=== PATIENT | female | born 1985 | race Caucasian/White ===

== ENCOUNTER 2017-05-04 05:41 | Inpatient (IN) | payer BC ==
[2017-05-04] MEDS ORDERED: DEXTROSE 5%-LACTATED RINGERS 1,000 ML IV PRN (06:48)
[2017-05-04] MEDS ORDERED: OXYTOCIN/DEXTROSE 5%-WATER 30 UNITS/500 ML BAG IV ONE ×2 (06:48→15:45)
[2017-05-04] MEDS ORDERED: RINGER'S SOLUTION,LACTATED 1,000 ML IV ONE (06:48)
[2017-05-04] MEDS ORDERED: RINGER'S SOLUTION,LACTATED 1,000 ML IV PRN (06:48)
[2017-05-04] MEDS ORDERED: ONDANSETRON HCL/PF 2 MG/ML VIAL IV PRN ×2 (06:48→10:52)
[2017-05-04] MEDS ORDERED: PENICILLIN G POTASSIUM 5 MILLIONUNT in DEXTROSE 5 % IN WATER 100 ML IV ONE ×2 (07:00)
--- NOTE | 2017-05-04 10:47 | PN ---
Progess Note - Interim Narrative: 05/04/17 10:45 Subjective-starting to feel contractions and getting uncomfortable Objective- SVE- /-2 FHTs- 150s, moderate variability, positive accelerations, no decelerations Sarben- every 2-3 minutes on 6 milliunits of Pitocin Assessment and plan- Labor-elective induction with Pitocin GBS status-positive on penicillin, next dose due at 11 AM Patient desires epidural, will start bolus and call in anesthesia Continue current plan of care.
[2017-05-04] MEDS ORDERED: BUPIVACAINE HCL/0.9 % NACL/PF 250 ML EP PRN (10:52)
[2017-05-04] MEDS ORDERED: NALOXONE HCL 1 MG/1 ML SYRG IV PRN (10:52)
[2017-05-04] MEDS: PENICILLIN G POTASSIUM 2.5 MILLIONUNT in DEXTROSE 5 % IN WATER 100 ML IV SCH ×4 (10:55→15:04)
[2017-05-04] MEDS ORDERED: BUPIVACAINE HCL/PF 30 ML VIAL EP SCH (11:00)
--- NOTE | 2017-05-04 11:59 | OR ---
Anesthesia Procedure Note - Anesthesia Procedure Note Date of Service: 05/04/17 Narrative: Vital Signs - Last Taken Temp 36.4 C L 05/04/17 11:35 Pulse 92 05/04/17 11:35 Resp 20 05/04/17 11:35 BP 120/81 05/04/17 11:35 Pulse Ox 98 05/04/17 11:35 05/04/17 11:58 ANESTHESIA PROCEDURE NOTE Date of Procedure: 05/04/2017. Time of procedure: 1135. Performed by: Nahun Boyd CRNA Dietary Director: None. Preprocedure diagnosis: Active labor. Post procedure diagnosis: Same. Procedure: Insertion of labor epidural. Indications: The patient is a 32 -year-old female in active labor requesting labor epidural for pain management. Findings: See below. Details of the procedure: The patient was placed in a sitting position. DuraPrep as well as Betadine swabs X3 was applied to the patient's back. Patient was then draped in a sterile fashion. Lidocaine 1% was infiltrated to the skin and subcutaneous tissues at the level of the L3-4 interspace. The epidural space was identified using a 18-gauge Tuohy needle with loss-of- resistance technique. Epidural catheter was inserted to a depth of 13 centimeters at skin. Negative test dose was elicited using 3 mL of 1.5% preservative-free lidocaine plus epinephrine 1 200,000. The epidural catheter was then taped and secured in place. A loading dose of 8 mL of 0.25% preservative-free bupivacaine was administered to the epidural catheter after negative aspiration for blood and CSF. EBL: Minimal. Fluids: N/A. Specimen: N/A. Post procedure condition: The patient tolerated the procedure well. No complications were noted. Thank you for this consultation. Nahun Boyd CRNA
--- NOTE | 2017-05-04 13:46 | PN ---
Progess Note - Interim Narrative: 05/04/17 13:44 Subjective-comfortable after epidural Objective- SVE- 7-/80/-2, amniotomy performed with a large amount of clear fluid FHTs- 140s, moderate variability, early decelerations, positive accelerations [place]- 2-4 minutes Assessment and plan- Labor-continue Pitocin GBS status-positive continue penicillin Continue current plan of care.
[2017-05-04] MEDS ORDERED: oxyCODONE HCL/ACETAMINOPHEN 1 TAB TABLET PO PRN ×2 (15:45)
[2017-05-04] MEDS ORDERED: BISACODYL 10 MG SUPP.RECT RC PRN (15:45)
[2017-05-04] MEDS ORDERED: BENZOCAINE/MENTHOL 81 SPRAY CAN TP PRN (15:45)
[2017-05-04] MEDS ORDERED: HYDROCORTISONE 30 APPL TUBE TP PRN (15:45)
[2017-05-04] MEDS ORDERED: SENNOSIDES 8.6 MG TABLET PO PRN (15:45)
[2017-05-04] MEDS ORDERED: GLYCERIN/WITCH HAZEL LEAF 40 APPL BOX TP PRN (15:45)
--- NOTE | 2017-05-04 15:48 | OR ---
Operative Report - Dictated Report Narrative: Spontaneous Vaginal Delivery Viable female with APGARS of 9 at 1 minute and 9 at 5 minutes. She delivered at 1521. Presentation was GENI. The anterior and posterior shoulder delivered with out difficulty followed by the remainder of the baby. Terminal meconium was noted. Clear fluid. The baby was placed on the maternal abdomen, dried and stimulated and spontaneous cry was noted. The cord was clamped and cut after approximately 60 seconds. Weight: 9 pounds 0.8 ounces or 4107 g Placenta was delivered spontaneously and intact. Second degree midline vaginal laceration that was repaired with 2-0 Vicryl. Estimated blood loss: 200 ml Mother and baby tolerated delivery well. History for Definition: * The number of deliveries resulting in a live the patient experienced prior to current hospitalization * The previous delivery of live twins or any live multiple gestation is considered one live event. *If primagravida or nulliparous is documented select zero for the number of previous live births. Live Events: 1
[2017-05-05] MEDS: IBUPROFEN 800 MG TABLET PO PRN ×2 (00:05→09:56)
[2017-05-05] MEDS: DOCUSATE SODIUM 100 MG CAPSULE PO SCH ×3 (04:14→23:15)
[2017-05-05] MEDS: LEVOTHYROXINE 200 MCG PO SCH ×2 (07:15→07:45)
[2017-05-05] MEDS ORDERED: LEVOTHYROXINE 200 MCG PO SCH (07:30)
--- NOTE | 2017-05-05 09:05 | PN ---
Progess Note - Interim Narrative: 05/05/17 09:04 progress note Subjective: The patient is doing well. She is ambulating, voiding, tolerating by mouth. She has minimal pain and moderate lochia. Objective: General: No acute distress Abdomen: Soft, nontender, fundus is firm just below the umbilicus Extremities: minimal edema, nontender to palpation Assessment and plan: day 1 Feeding: Breast Pain: Controlled with by mouth medication control: Depo-Provera Routine care.
[2017-05-05] MEDS ORDERED: LEVOTHYROXINE SODIUM 100 MCG TABLET PO SCH (10:15)
[2017-05-06] MEDS: IBUPROFEN 800 MG TABLET PO PRN (05:18)
[2017-05-06 07:56] VITALS: BP 124/76
[2017-05-06] MEDS: LEVOTHYROXINE 200 MCG PO SCH (08:18)
[2017-05-06] MEDS: DOCUSATE SODIUM 100 MG CAPSULE PO SCH (08:18)
--- NOTE | 2017-05-06 13:02 | PN ---
Subjective - Date and Time Seen Date: 05/06/17 Subjective Narrative: day 2, s/p doing well. no complaints. . normal lochia. Objective - Vitals Vitals: Last Vital Signs Temp 36.5 C 05/06/17 07:52 Pulse 69 05/06/17 07:52 Resp 18 05/06/17 07:52 BP 124/76 05/06/17 07:52 Pulse Ox 98 05/06/17 07:52 - Exam Constitutional: Present: Alert, Oriented x3, Cooperative Respiratory: Present: no respiratory distress Abdomen: Present: soft, nontender, nondistended, other - fundus firm and non- tender Extremity: Present: normal range of motion, no pedal edema, no calf tenderness Skin Exam: Present: normal color, warm/dry, no cyanosis Appearance: Present: appropriate appearance Eye contact: Present: cooperative, good eye contact, normal speech Cauti Physician Documentation - Urinary Catheter Management Urethral (Bird) Date of Insertion: 05/04/17 Time of Insertion: 12:40 Date of Removal: 05/04/17 Time of Removal: 15:12 Assessment/Plan Plan Narrative: A: PPD#2, s/p stable and well. Plan: discharge home today. Patricia Simental MD
== END 2017-05-06 15:00 | disposition home or self-care (01) | DRG 775 ==
LOC: OB 05:41
PROVIDERS: ADMIT Obstetrics & Gynecology Gynecologic Oncology; ATTEND Obstetrics & Gynecology Gynecologic Oncology
PROC: 10E0XZZ Delivery of Products of Conception, External Approach (ICD-10-PCS; principal; 2017-05-04)
PROC: 0KQM0ZZ Repair Perineum Muscle, Open Approach (ICD-10-PCS; 2017-05-04)
PROC: 3E033VJ Introduction of Other Hormone into Peripheral Vein, Percutaneous Approach (ICD-10-PCS; 2017-05-04)
PROC: 10907ZC Drainage of Amniotic Fluid, Therapeutic from Products of Conception, Via Natural or Artificial Opening (ICD-10-PCS; 2017-05-04)
PROC: 4A1HXCZ Monitoring of Products of Conception, Cardiac Rate, External Approach (ICD-10-PCS; 2017-05-04)
PROC: 00HU33Z Insertion of Infusion Device into Spinal Canal, Percutaneous Approach (ICD-10-PCS; 2017-05-04)
DX: O77.0 Labor and delivery complicated by meconium in amniotic fluid; O70.1 Second degree perineal laceration during delivery; Z37.0 Single live birth; Z3A.40 40 weeks gestation of pregnancy; O99.824 Streptococcus B carrier state complicating childbirth